=== PATIENT | male | born 1990 | race Two or more races ===

== ENCOUNTER 2022-03-23 11:01 | Emergency (ER) | payer SELFPAY ==
[~2022-03-23] VITALS: Ht 170.2 cm; Wt 87.2 kg
[2022-03-23 12:23] VITALS: BP 134/69
[2022-03-23] MEDS ORDERED: AZIT500T66 PO (12:58)
[2022-03-23] MEDS ORDERED: LIDO2SOL23 MT (12:58)
[2022-03-23] MEDS ORDERED: methylPREDNISolone SOD SUCC 125 MG/2 ML VL IM ONE (13:00)
[2022-03-23] MEDS ORDERED: cefTRIAXone SOD 1,000 MG VL IM ONE (13:00)
== END 2022-03-23 13:13 | disposition home or self-care (01) ==
LOC: ER 11:01
DX: J03.90 Acute tonsillitis, unspecified (principal)
CPT/HCPCS: 96372; 99284; J0696; J2930

== ENCOUNTER 2022-04-11 09:47 | Emergency (ER) | payer MEDICAID, OTHER ==
[~2022-04-11] VITALS: Ht 175.3 cm; Wt 84.4 kg
[~2022-04-11 09:47] MED LIST: AZIT500T66 PO; LIDO2SOL23 MT
[2022-04-11 10:59] VITALS: BP 115/78
[2022-04-11] MEDS ORDERED: ACYC-161 PO (11:45)
[2022-04-11] MEDS ORDERED: NYS5LQ MT (11:45)
[2022-04-11] MEDS ORDERED: CLIN300C8 PO (11:45)
[2022-04-12 08:06] LABS: RPR Non Reactive (Non Reactive)
[2022-04-14 09:34] LABS: Hepatitis B Surface Antibody Negative (Negative)
== END 2022-04-11 12:07 | disposition home or self-care (01) ==
LOC: ER 09:51
DX: B08.1 Molluscum contagiosum (principal); B37.0 Candidal stomatitis; B00.9 Herpesviral infection, unspecified
CPT/HCPCS: 36415; 86592; 86703; 86706; 86803; 87340

== ENCOUNTER 2022-06-11 10:52 | Emergency (ER) | payer MEDICAID ==
[~2022-06-11] VITALS: Ht 172.7 cm; Wt 68.1 kg
[~2022-06-11 10:52] MED LIST changes: +ACYC-161 PO; +CLIN300C8 PO; +NYS5LQ MT
[2022-06-11] MEDS ORDERED: PIPERACILLIN-TAZOB 3.375GM 100 ML IV ONE (12:45)
[2022-06-11] MEDS ORDERED: VANCOMYCIN 1GM/250ML 250 ML IV ONE (12:45)
[2022-06-11] MEDS ORDERED: LACTATED RINGER'S 2,000 ML IV ONE (12:45)
[2022-06-11] MEDS ORDERED: methylPREDNISolone SOD SUCC 125 MG/2 ML VL IV ONE (12:45)
[2022-06-11] MEDS ORDERED: HYDROmorphone HCL 2 MG/ML VL/or syr IV ONE (12:45)
[2022-06-11] MEDS ORDERED: HYDROcodone-ACET 10/325MG TAB PO ONE (13:45)
[2022-06-11 17:20] LABS: Basophils # (auto) 0 10 ^3/uL (0-0.2); Basophils % (auto) 0.2 % (0.0-2.0); Eosinophils # (auto) 0 10 ^3/uL (0-0.8); Eosinophils % (auto) 0.3 % (0.0-7.0); Hematocrit 48.5 % (41.0-53.0); Hemoglobin 15.6 g/dL (13.5-17.5); Lymphocytes # (auto) 0.3 10 ^3/uL (0.4-5.4); Lymphocytes % (auto) 2.6 % (10.0-50.0); Mean Corpuscular Hemoglobin 27.9 pg (28.0-32.0); Mean Corpuscular Volume 87.1 fL (80.0-100.0); Monocytes # (auto) 0.6 10 ^3/uL (0-1.3); Monocytes % (auto) 4.5 % (0.0-12.0); Neutrophils # (auto) 11.2 10 ^3/uL (1.6-8.6); Neutrophils % (auto) 92.4 % (37.0-80.0); Red Blood Cells 5.58 10^6/uL (4.5-5.90); White Blood Cell 12.2 10^3/uL (4.4-10.8)
[2022-06-11 17:53] LABS: Lactic Acid w/Reflex 2.8 mmol/L (0.4-2.0)
[2022-06-11 19:00] LABS: Urine Bacteria FEW /hpf (None Seen); Urine Blood Negative /uL (Negative); Urine Mucus FEW (None Seen); Urine Specific Gravity 1.024 (1.001-1.035); Urine WBC 3 /hpf (0 - 3)
[2022-06-11 19:06] LABS: Alkaline Phosphatase 52 U/L (45-117); Anion Gap 8 (5-15); BUN/Creatinine Ratio 38.6 (10.0-20.0); Blood Urea Nitrogen 32 mg/dL (7-18); Carbon Dioxide 22 mmol/L (21-32); Chloride 110 mmol/L (98-107); GFR African American 139 mL/min; GFR Non-African American 115 mL/min; Glucose 160 mg/dL (74-106); Potassium 4.5 mmol/L (3.5-5.1); Sodium 140 mmol/L (136-145)
[2022-06-11 19:07] LABS: Alanine Aminotransferase 21 U/L (16-61); Albumin 1.8 g/dL (3.4-5.0); Aspartate Aminotransferase 13 U/L (15-37); Bilirubin, Total 0.4 mg/dL (0.2-1.0); Calcium 8.7 mg/dL (8.5-10.1)
[2022-06-12] MEDS ORDERED: ONDANSETRON HCL 4 MG/2 ML VIAL IV ONE (01:00)
[2022-06-12] MEDS ORDERED: fentaNYL CITRATE 100 MCG/2 ML VL IV ONE (01:00)
[2022-06-12 01:14] VITALS: BP 120/80
[2022-06-12] MEDS ORDERED: HYDROmorphone HCL 2 MG/ML VL/or syr IV ONE (01:15)
== END 2022-06-12 00:46 | disposition short-term general hospital (02) ==
LOC: ER 10:52 → EDBD 10:52 → EDUNIT# 10:52 → ER 06-12 00:46
DX: L10.0 Pemphigus vulgaris (principal)
CPT/HCPCS: 36415; 71045; 80053; 81001; 83605; 83880; 85025; 87040; 87077; 87086; 87186; 96365; 96366; 96367; 96375; 96376; 99285; J1170; J2405; J2543; J2930; J3370